=== PATIENT | female | born 1950 | race African-American/Black ===

== ENCOUNTER 2019-01-11 12:02 | Emergency (ER) | payer MEDICARE ==
[~2019-01-11] VITALS: Ht 165.1 cm; Wt 68.0 kg
[2019-01-11] MEDS ORDERED: SODIUM CHLORIDE 0.9% 1,000 ML IV ONE (12:34)
[2019-01-11] MEDS ORDERED: ONDANSETRON HCL 4MG/2ML INJ IV STA (12:34)
[2019-01-11 12:46] LABS: BASOPHILS % 1.7 % (0.0-2.0); EOSINOPHILS % 0.4 % (0.0-5.0); HEMATOCRIT. 40.9 % (36.0-48.0); HEMOGLOBIN. 13.6 g/dL (12.0-16.0); LYMPHOCYTES % 35.3 % (20.0-50.0); MEAN CORPUSCULAR HEMOGLOBIN 27.2 pg (28.0-32.0); MEAN PLATELET VOLUME 8.3 fl (7.4-10.4); NEUTROPHILS % 51.6 % (40.0-76.0); PLATELET 172 x1000/uL (130-400); RED BLOOD CELL COUNT 4.99 mill/uL (4.2-5.4); RED CELL DISTRIBUTION WIDTH 14.5 % (11.6-14.6)
[2019-01-11 12:55] LABS: CHLORIDE 107 mEq/L (98-107)
[2019-01-11 13:51] VITALS: BP 141/58
== END 2019-01-11 13:51 | disposition home or self-care (01) ==
LOC: ER 12:02
DX: R19.7 Diarrhea, unspecified (principal); I10 Essential (primary) hypertension
CPT/HCPCS: 36415; 80053; 85025; 96361; 96374; 99283; J2405; J7030